=== PATIENT | male | born 1995 | race Caucasian/White ===

== ENCOUNTER 2021-05-02 10:08 | Emergency (ER) | payer BC ==
[~2021-05-02] VITALS: Ht 187.8 cm; Wt 131.0 kg
[2021-05-02] MEDS ORDERED: KETOROLAC 30 MG/ML VIAL IVP ONE ×2 (10:30→12:00)
--- NOTE | 2021-05-02 10:31 | ED Abdominal Pain ---
General Chief Complaint: Abdominal/GI Problems Stated Complaint: CONSTIPATION,RLQ PAIN,N/V Nursing Triage Note: AMB TO ROOM WITH C/O CONSTIPATION AND R LOWR BACK PAIN THAT OTC ALEVE DID NOT HELP. VOMITED X1 Source of Information: Patient Exam Limitations: No Limitations History of Present Illness Date Seen by Provider: May 02, 2021 Time Seen by Provider: 10:20 Initial Comments Patient is a 25-year-old male who presents to the emergency department today with a chief complaint of right lower quadrant abdominal pain. Patient states he woke up feeling normal this morning and then about an hour and 45 minutes ago started developing pain in the right low abdomen. Patient states that he took some naproxen, 1 tablet. About 45 minutes later he vomited. Patient's girlfriend is at the bedside and states that every bump in the road on the way over in the car seem to cause him increased pain. He denies any dysuria, urgency, frequency, hematuria. States that he feels "constipated". He normally has 3 or 4 bowel movements a day. States he was able to "get a little out" this morning but still feels like he needs to have a bowel movement. Last "normal" BM was last night. Non black, non bloody. No history of kidney stones. No prior abdominal surgeries. All other ROS reviewed and neg except as stated. Timing/Duration: 1-3 Hours Severity/Quality: Moderate ("6-7") Location: RLQ (right flank) Radiation: No Radiation Activities at Onset: Rest Associated Symptoms: Nausea/Vomiting Allergies and Home Medications Allergies Coded Allergies: No Known Drug Allergies (Unverified , 05/02/21) Patient Home Medication List Home Medication List Reviewed: Yes Hydrocodone/Acetaminophen (Hydrocodone-Acetamin 5-325 mg) 1 Each Tablet, 1 TAB PO Q6H PRN for PAIN-MODERATE (5-7) Prescribed by: JOANNE SAL on 05/02/211400 Ondansetron (Ondansetron Odt) 4 Mg Tab.rapdis, 4 MG PO Q8H PRN for nausea Prescribed by: JOANNE SAL on 05/02/211400 Tamsulosin HCl (Flomax) 0.4 Mg Cap, 0.4 MG PO DAILY Prescribed by: JOANNE SAL on 10/10/21 1401 Review of Systems Review of Systems Constitutional: see HPI, diaphoresis EENTM: See HPI Respiratory: No Symptoms Reported Cardiovascular: No Symptoms Reported Gastrointestinal: Nausea, Vomiting Genitourinary: No Symptoms Reported Musculoskeletal: no symptoms reported Skin: no symptoms reported Psychiatric/Neurological: No Symptoms Reported All Other Systems Reviewed Negative Unless Noted: Yes Past Uymldbp-Apdlve-Oejhkg Hx Patient Social History Tobacco Use?: No Substance use?: No Alcohol Use?: Yes Alcohol Frequency: Rarely Immunizations Up To Date First/Initial COVID19 Vaccinat: SEPTEMBER 30 Second COVID19 Vaccination Artemio: NOVEMBER 08 COVID19 Vaccine Carriage Setter: MODERCinsay Physical Exam Vital Signs Vital Signs - First Documented 05/02/21 10:13 Temp 36.1 Pulse 61 Resp 18 B/P (MAP) 145/86 (105) Pulse Ox 98 O2 Delivery Room Air Capillary Refill : Less Than 3 Seconds Height/Weight/BMI Height: '" Weight: lbs. oz. kg; 3.00 BMI Method: General Appearance: WD/WN, no apparent distress HEENT: PERRL/EOMI Neck: normal inspection Respiratory: lungs clear, normal breath sounds, no respiratory distress, no accessory muscle use Cardiovascular: regular rate, rhythm Gastrointestinal: soft, tenderness (minimal tenderness obtained on palpation of the RLQ, just above the RLQ. no rebound, no guarding, no distension; normal bowel sounds. Negativve heel tap; negative Rovsing's; neg obturator) Extremities: normal range of motion, non-tender, normal inspection, no pedal edema, no calf tenderness Back: no CVA tenderness Neurologic/Psychiatric: alert, normal mood/affect, oriented x 3 Skin: normal color, warm/dry Progress/Results/Core Measures Results/Orders Lab Results Laboratory Tests Test 05/02/21 10:40 05/02/21 11:57 Range/Units White Blood Count 8.1 4.3-11.0 10^3/uL Red Blood Count 4.87 4.30-5.52 10^6/uL Hemoglobin 14.6 13.3-17.7 g/dL Hematocrit 43 40-54 % Mean Corpuscular Volume 89 80-99 fL Mean Corpuscular Hemoglobin 30 25-34 pg Mean Corpuscular Hemoglobin Concent 34 32-36 g/dL Red Cell Distribution Width 12.0 10.0-14.5 % Platelet Count 336 130-400 10^3/uL Mean Platelet Volume 10.0 9.0-12.2 fL Immature Granulocyte % (Auto) 1 % Neutrophils (%) (Auto) 77 H 42-75 % Lymphocytes (%) (Auto) 14 12-44 % Monocytes (%) (Auto) 7 0-12 % Eosinophils (%) (Auto) 1 0-10 % Basophils (%) (Auto) 1 0-10 % Neutrophils # (Auto) 6.3 1.8-7.8 10^3/uL Lymphocytes # (Auto) 1.1 1.0-4.0 10^3/uL Monocytes # (Auto) 0.5 0.0-1.0 10^3/uL Eosinophils # (Auto) 0.1 0.0-0.3 10^3/uL Basophils # (Auto) 0.1 0.0-0.1 10^3/uL Immature Granulocyte # (Auto) 0.1 0.0-0.1 10^3/uL Sodium Level 139 135-145 MMOL/L Potassium Level 4.3 3.6-5.0 MMOL/L Chloride Level 105 98-107 MMOL/L Carbon Dioxide Level 22 21-32 MMOL/L Anion Gap 12 5-14 MMOL/L Blood Urea Nitrogen 15 7-18 MG/DL Creatinine 0.91 0.60-1.30 MG/DL Estimat Glomerular Filtration Rate 101 BUN/Creatinine Ratio 16 Glucose Level 137 H 70-105 MG/DL Calcium Level 9.5 8.5-10.1 MG/DL Urine Color YELLOW Urine Clarity CLEAR Urine pH 6.0 5-9 Urine Specific [place] >=1.030 1.016-1.022 Urine Protein NEGATIVE NEGATIVE Urine Glucose (UA) NEGATIVE NEGATIVE Urine Ketones NEGATIVE NEGATIVE Urine Nitrite NEGATIVE NEGATIVE Urine Bilirubin NEGATIVE NEGATIVE Urine Urobilinogen 0.2 < = 1.0 MG/DL Urine Leukocyte Esterase NEGATIVE NEGATIVE Urine RBC (Auto) 3+ H NEGATIVE Urine RBC 10-25 H /HPF Urine WBC NONE /HPF Urine Squamous Epithelial Cells RARE /HPF Urine Crystals PRESENT H /LPF Urine Leucine Crystals FEW H /LPF Urine Amorphous Sediment MOD EVERETTE URATES H /LPF Urine Bacteria TRACE /HPF Urine Casts NONE /LPF Urine Mucus MODERATE H /LPF Urine Culture Indicated NO My Orders Orders - JOANNE SAL MD Ed Iv/Invasive Line Start (05/02/21 10:25) Cbc With Automated Diff (05/02/21 10:25) Basic Metabolic Panel (05/02/21 10:25) Ua Culture If Indicated (05/02/21 10:25) Ketorolac Injection (Toradol Injection) (05/02/21 10:30) Ondansetron Injection (Zofran Injectio (05/02/21 10:45) Ns Iv 1000 Ml (Sodium Chloride 0.9%) (05/02/21 11:15) Ketorolac Injection (Toradol Injection) (05/02/21 12:00) Ondansetron Injection (Zofran Injectio (05/02/21 12:00) Ct Abd/Pelvis Wo(Kidney Stone) (05/02/21 13:02) Abdomen/Kub 1view (05/02/21 13:04) Medications Given in ED Current Medications Medications Dose Ordered Sig/Yanna Route Start Time Stop Time Status Last Admin Dose Admin Ketorolac Tromethamine 15 mg ONCE ONCE IVP 05/02/21 10:30 05/02/21 10:31 DC 05/02/21 10:45 15 MG Ketorolac Tromethamine 15 mg ONCE ONCE IVP 05/02/21 12:00 05/02/21 12:01 DC 05/02/21 12:03 15 MG Ondansetron HCl 4 mg ONCE ONCE IVP 05/02/21 10:45 05/02/21 10:46 DC 05/02/21 10:44 4 MG Ondansetron HCl 4 mg ONCE ONCE IVP 05/02/21 12:00 05/02/21 12:01 DC 05/02/21 12:03 4 MG Vital Signs/I&O 05/02/21 10:13 Temp 36.1 Pulse 61 Resp 18 B/P (MAP) 145/86 (105) Pulse Ox 98 O2 Delivery Room Air Blood Pressure Mean: 105 Progress Progress Note : Time: 11:54 Progress Note NItified by Nyasia, RN that patient states his nausea and pain are coming back.. He still has not provided a urine sample - will give him another round of anti- emetic and some pain meds. CBC and chem reassuring (wth his rather benign physical exam) that there is no acute surgical process in play. Awaiting UA to further eval for kidney stone/ UTI Diagnostic Imaging Diagonstic Imaging: CT [facility] [place] [place] NAME: KRANTHI PAREDES MED REC#: [id number] PT STATUS: REG ER : [birth year]14/2002 PHYSICIAN: JOANNE SAL MD ADMIT DATE: 05/02/21/ER Draft Date of Exam:05/02/21 CHEST 1 VIEW, AP/PA ONLY EXAM: Portable erect AP chest at 11:21 AM INDICATION: Nausea and vomiting COMPARISON: 04/03/2019. FINDINGS: The heart size is stable when compared to the prior exam. The lungs are clear. There is no evidence for failure, pneumonia or for a pleural effusion. The mediastinum is not widened. The osseous structures are intact. IMPRESSION: There is no evidence for active disease. Dictated on workstation # [id number] Dict: 05/02/21 1134 Trans: 05/02/21 1138 [facility] [id number] Interpreted by: CANDI BHARDWAJ MD Electronically signed by: [facility] [place] [place] NAME: WHIT DSOUZA MED REC#: [id number] PT STATUS: REG ER : 1995 PHYSICIAN: JOANNE SAL MD ADMIT DATE: 05/02/21/ER Draft Date of Exam:05/02/21 CT ABD/PELVIS WO(KIDNEY STONE) PROCEDURE: CT urinary tract, rule out kidney stone. TECHNIQUE: Multiple contiguous axial images were obtained through the abdomen and pelvis without the use of intravenous contrast. Auto Exposure Controls were utilized during the CT exam to meet ALARA standards for radiation dose reduction. INDICATION: 25-year-old male, right flank pain starting today. Microscopic hematuria. CORRELATION STUDY: None. FINDINGS: LOWER THORAX: Clear. Small hiatal hernia. LIVER: Unremarkable. GALLBLADDER: Present and unremarkable. No bile duct dilatation. SPLEEN: Unremarkable. PANCREAS: Unremarkable. ADRENAL GLANDS: Minimal calcification of the right adrenal gland may reflect previous trauma or infection. KIDNEYS: Approximately 5 mm stone distal right ureter just proximal to the UVJ results in mild right-sided hydroureter. Minimal caliectasis is present. Left kidney and collecting system unremarkable. ABDOMINAL AORTA: Nonaneurysmal. A few shotty aortocaval and scattered mesenteric lymph nodes. GASTROINTESTINAL TRACT: No obstruction or inflammation. Normal appendix. URINARY BLADDER: Relatively decompressed not well evaluated. REPRODUCTIVE: Unremarkable as visualized. OSSEOUS STRUCTURES: A few small Schmorl's node deformities of the lower thoracic vertebral bodies. No acute bony abnormality. OTHER: None. IMPRESSION: 1. 5 mm stone distal right ureter results in mild upstream obstructive uropathy. Dictated on workstation # [id number] Dict: 05/02/21 1325 Trans: 05/02/21 1337 [facility] [id number] Interpreted by: JAMAL CUENCA DO Electronically signed by: [facility] [place] [place] NAME: WHIT DSOUZA [facility] REC#: [id number] PT STATUS: REG ER : 1995 PHYSICIAN: JOANNE SAL MD ADMIT DATE: 05/02/21/ER Draft Date of Exam:05/02/21 ABDOMEN/KUB 1VIEW INDICATION: Right flank pain'. TECHNIQUE: 2 supine view of the abdomen 1:29 PM CORRELATION STUDY: None FINDINGS: The known 5 mm calcification in the distal right ureter is less well-visualized on this examination but is present. There is mild stool in the proximal colon. Osseous structures are unremarkable. IMPRESSION: 1. The known 5 mm distal right ureteral stone is limited in visualization but present on radiographic imaging. Dictated on workstation # [id number] Dict: 05/02/21 1328 Trans: 05/02/21 1340 B [id number] Interpreted by: JAMAL CUENCA DO Electronically signed by: Departure Impression Primary Impression: Right ureteral calculus Disposition: 01 HOME, SELF-CARE Condition: Stable Departure-Patient Inst. Decision time for Depature: 13:51 Referrals: [facility] [place],LOCAL PHYSICIAN (PCP) Primary Care Physician TRENT MUÑOZ MD Patient Instructions: Kidney Stones in Adults Add. Discharge Instructions: Drink lots of fluids to stay well-hydrated. Use the urine strainer to strain your urine every time you go to the bathroom so that you are aware when you passed her stone. Edbv-mgo-eviyhdn Aleve, 2 tablets at a time twice daily with food as needed for pain. I have also given your prescription for hydrocodone, this is a narcotic medication, may make you sleepy. Do not drive and take hydrocodone. Take this medication every 6 hours as needed for worse pain. Flomax has been prescribed as well to help increase urinary flow and help to pass the stone. I have also sent nausea medications to your pharmacy. Come back to the emergency department for any increased pain especially with fever, inability to urinate, vomiting with inability to hold down your medications or any other emergent concerning symptoms. I have referred you to [facility] for routine medical care as well as to Dr. Muñoz who is the urologist on-call. If you have persistent/worsening pain - please call for Urology follow up. Scripts Hydrocodone/Acetaminophen (Hydrocodone-Acetamin 5-325 mg) 1 Each Tablet 1 TAB PO Q6H PRN for PAIN-MODERATE (5-7), #12 TAB Prov: JOANNE SAL MD 05/02/21 Ondansetron (Ondansetron Odt) 4 Mg Tab.rapdis 4 MG PO Q8H PRN for nausea, #15 TAB Prov: JOANNE SAL MD 05/02/21 Tamsulosin HCl (Flomax) 0.4 Mg Cap 0.4 MG PO DAILY, #14 CAP Prov: JOANNE SAL MD 05/02/21 Work/School Note: Work Release Form Date Seen in the Emergency Department: May 02, 2021 Return to Work: May 04, 2021 JOANNE SAL MD May 02, 2021 10:31
[2021-05-02] MEDS ORDERED: ONDANSETRON 4 MG/2 ML (SDV) Z0FRAN IVP ONE ×2 (10:45→12:00)
[2021-05-02 10:57] LABS: BASOPHILS # (AUTO) 0.1 10^3/uL (0.0-0.1); BASOPHILS % (AUTO) 1 % (0-10); EOSINOPHILS # (AUTO) 0.1 10^3/uL (0.0-0.3); EOSINOPHILS % (AUTO) 1 % (0-10); HEMATOCRIT 43 % (40-54); HEMOGLOBIN 14.6 g/dL (13.3-17.7); LYMPHOCYTES # (AUTO) 1.1 10^3/uL (1.0-4.0); LYMPHOCYTES % (AUTO) 14 % (12-44); MEAN CORPUSCULAR HEMOGLOBIN 30 pg (25-34); MEAN CORPUSCULAR HGB CONC 34 g/dL (32-36); MEAN CORPUSCULAR VOLUME 89 fL (80-99); MONOCYTES # (AUTO) 0.5 10^3/uL (0.0-1.0); MONOCYTES % (AUTO) 7 % (0-12); NEUTROPHILS # (AUTO) 6.3 10^3/uL (1.8-7.8); NEUTROPHILS % (AUTO) 77 % (42-75); PLATELET COUNT 336 10^3/uL (130-400); WHITE BLOOD COUNT 8.1 10^3/uL (4.3-11.0)
[2021-05-02 11:05] LABS: POTASSIUM 4.3 MMOL/L (3.6-5.0)
[2021-05-02 11:06] LABS: CALCIUM 9.5 MG/DL (8.5-10.1)
[2021-05-02 11:11] LABS: CREATININE SERUM 0.91 MG/DL (0.60-1.30)
[2021-05-02] MEDS ORDERED: NS IV 1000 ML 1,000 ML IV SCH (11:15)
[2021-05-02 12:15] LABS: BILIRUBIN,URINE NEGATIVE (NEGATIVE); CLARITY,URINE CLEAR; COLOR,URINE YELLOW; GLUCOSE, URINE (UA) NEGATIVE (NEGATIVE); KETONES,URINE NEGATIVE (NEGATIVE); LEUKOCYTE ESTERASE ,URINE NEGATIVE (NEGATIVE); NITRITE,URINE NEGATIVE (NEGATIVE); PROTEIN,URINE NEGATIVE (NEGATIVE)
[2021-05-02 12:31] LABS: AMORPHOUS SEDIMENT,UR MOD AMOR URATES /LPF; BACTERIA,URINE TRACE /HPF; SQUAMOUS EPITHELIAL CELL,UR RARE /HPF
--- NOTE | 2021-05-02 13:39 | Diagnostic Imaging Report ---
PROCEDURE: CT urinary tract, rule out kidney stone. TECHNIQUE: Multiple contiguous axial images were obtained through the abdomen and pelvis without the use of intravenous contrast. Auto Exposure Controls were utilized during the CT exam to meet ALARA standards for radiation dose reduction. INDICATION: 25-year-old male, right flank pain starting today. Microscopic hematuria. CORRELATION STUDY: None. FINDINGS: LOWER THORAX: Clear. Small hiatal hernia. LIVER: Unremarkable. GALLBLADDER: Present and unremarkable. No bile duct dilatation. SPLEEN: Unremarkable. PANCREAS: Unremarkable. ADRENAL GLANDS: Minimal calcification of the right adrenal gland may reflect previous trauma or infection. KIDNEYS: Approximately 5 mm stone distal right ureter just proximal to the UVJ results in mild right-sided hydroureter. Minimal caliectasis is present. Left kidney and collecting system unremarkable. ABDOMINAL AORTA: Nonaneurysmal. A few shotty aortocaval and scattered mesenteric lymph nodes. GASTROINTESTINAL TRACT: No obstruction or inflammation. Normal appendix. URINARY BLADDER: Relatively decompressed not well evaluated. REPRODUCTIVE: Unremarkable as visualized. OSSEOUS STRUCTURES: A few small Schmorl's node deformities of the lower thoracic vertebral bodies. No acute bony abnormality. OTHER: None. IMPRESSION: 1. 5 mm stone distal right ureter results in mild upstream obstructive uropathy. Dictated by: Dictated on workstation # [id number]
--- NOTE | 2021-05-02 13:41 | Diagnostic Imaging Report ---
INDICATION: Right flank pain'. TECHNIQUE: 2 supine view of the abdomen 1:29 PM CORRELATION STUDY: None FINDINGS: The known 5 mm calcification in the distal right ureter is less well-visualized on this examination but is present. There is mild stool in the proximal colon. Osseous structures are unremarkable. IMPRESSION: 1. The known 5 mm distal right ureteral stone is limited in visualization but present on radiographic imaging. Dictated by: Dictated on workstation # [id number]
[2021-05-02] MEDS ORDERED: TMSL.4C PO (14:01)
[2021-05-02] MEDS ORDERED: ONDA4TAB11 PO (14:01)
[2021-05-02] MEDS ORDERED: ACHD5005 PO (14:01)
[2021-05-02 14:35] VITALS: BP 136/80
== END 2021-05-02 14:37 | disposition home or self-care (01) ==
LOC: ER 10:11
DX: N20.1 Calculus of ureter (principal)
CPT/HCPCS: 36415; 74018; 74176; 80048; 81000; 85025